=== PATIENT | male | born 1985 | race Caucasian/White ===

== ENCOUNTER 2018-01-11 15:42 | Emergency (ER) | payer BC ==
[~2018-01-11] VITALS: Ht 167.6 cm; Wt 75.3 kg
--- NOTE | 2018-01-11 15:58 | NUR ---
PT NAME CALLED IN LOBBY NO RESPONSE
[2018-01-11 16:07] VITALS: BP 163/79
--- NOTE | 2018-01-11 16:07 | NUR ---
PT CALLED 2ND TIME, RESPONDED. TRIAGED. C/O DOG BITE, BLEEDING CONTROLLED, VSS. EDMD MADE AWARE.
--- NOTE | 2018-01-11 18:48 | NUR ---
PT AMBULATES TO BED 6
--- NOTE | 2018-01-11 18:50 | NUR ---
PATIENT PRESENTS TO ED WITH COMPLAINTS OF DOG BITE TO CHIN AND SCRAPE TO LEFT MORALES. PATIENT STATES IT WAS A STRAY DOG. PATIENT REPORTS NKA. PAIN 9/10. DENIES N/V/D; SKIN IS PINK/WARM/DRY; AAOX4 WITH EVEN AND STEADY GAIT;PT DENIES ANY FEVER, CP, SOB, OR COUGH AT THIS TIME; PATIENT STATES PAIN OF 9/10 AT THIS TIME; VSS; PATIENT POSITIONED FOR COMFORT; HOB ELEVATED; BEDRAILS UP X1; BED DOWN. ER MD MADE AWARE OF PT STATUS.
--- NOTE | 2018-01-11 19:14 | NUR ---
Pt report given to EVY DELA CRUZ. Transfer of care at this time.
[2018-01-11] MEDS ORDERED: LIDOCAINE 2% 1000 MG/50 ML VIAL INJ ONE (19:30)
--- NOTE | 2018-01-11 20:15 | NUR ---
Patient has a laceration to CHIN. Dr. MARCOS applied sutures using sterile technique. Edges well approximated. Site cleansed with BETADINE. No bleeding noted. Pt tolerated well.
[2018-01-11 20:28] VITALS: BP 154/70
== END 2018-01-11 20:28 | disposition home or self-care (01) ==
LOC: MED 15:42
DX: S01.81XA Laceration without foreign body of other part of head, initial encounter (principal); S70.312A Abrasion, left thigh, initial encounter; W54.0XXA Bitten by dog, initial encounter; Y93.89 Activity, other specified; Y99.8 Other external cause status; Y92.89 Other specified places as the place of occurrence of the external cause
CPT/HCPCS: 12011; 90471; 90715; 99283; J2001

== ENCOUNTER 2018-05-18 11:02 | Emergency (ER) | payer BC ==
[~2018-05-18] VITALS: Ht 167.6 cm; Wt 73.9 kg
[2018-05-18 11:10] VITALS: BP 145/103
[2018-05-18] MEDS: KETOROLAC 60 MG/2 ML VIAL IM ONE (11:33)
[2018-05-18 14:52] VITALS: BP 130/88
== END 2018-05-18 14:52 | disposition home or self-care (01) ==
LOC: MED 11:02
DX: S20.20XA Contusion of thorax, unspecified, initial encounter (principal); M79.641 Pain in right hand; R68.84 Jaw pain; Y04.2XXA Assault by strike against or bumped into by another person, initial encounter; Y93.89 Activity, other specified; Y92.89 Other specified places as the place of occurrence of the external cause; Y99.8 Other external cause status
CPT/HCPCS: 70450; 70486; 71101; 73130; 96372; 99284; J1885

== ENCOUNTER 2019-07-20 16:36 | Emergency (ER) | payer BC ==
[~2019-07-20] VITALS: Ht 167.6 cm; Wt 77.1 kg
[2019-07-20 16:46] VITALS: BP 132/76
--- NOTE | 2019-07-20 16:52 | NUR ---
FLU SWAB COLLECTED. PATIENT AMB OUT TO LOBBY
--- NOTE | 2019-07-20 16:53 | NUR ---
Note maddy in ED - 07/20/19 at 1838 by [facility] C/O FEVER, BODYACHES, CHILLS, COUGH, VOMITING X2 OVER THE PAST 3 DAYS. PATIENT STATES PAIN OF 9/10 AT THIS TIME.
--- NOTE | 2019-07-20 17:59 | NUR ---
PT AMBULATED TO SERA
--- NOTE | 2019-07-20 18:37 | NUR ---
c/o bodyaches, fever, malaise, hacking cough x 3 days n/v today
[2019-07-20 18:39] VITALS: BP 132/76
--- NOTE | 2019-07-20 18:40 | NUR ---
Patient discharged with v/s stable. Written and verbal after care instructions given and explained. Patient alert, oriented and verbalized understanding of instructions. Ambulatory with steady gait. All questions addressed prior to discharge. ID band removed. Patient advised to follow up with PMD. Rx of tamiflu/bromfed dm/ ibuprofen/tylenol given. Patient educated on indication of medication including possible reaction and side effects. Opportunity to ask questions provided and answered.
== END 2019-07-20 18:40 | disposition home or self-care (01) ==
LOC: MED 16:36
DX: J10.1 Influenza due to other identified influenza virus with other respiratory manifestations (principal)
CPT/HCPCS: 87804; 99283